=== PATIENT | female | born 1950 | race Caucasian/White ===

== ENCOUNTER 2018-04-29 15:38 | Observation (INO) | payer MEDICARE ==
[~2018-04-29] VITALS: Ht 160 cm; Wt 61.0 kg
[2018-04-29] MEDS ORDERED: MELATONIN5 M1 PO (16:27)
[2018-04-29 16:53] LABS: BASOPHILS ABSOLUTE AUTO 0.05 K/mm3 (0.00-0.23); BASOPHILS PERCENT AUTO 1 % (0-2); EOSINOPHILS ABSOLUTE AUTO 0.14 K/mm3 (0.00-0.68); EOSINOPHILS PERCENT AUTO 1 % (0-6); Hematocrit 42.5 % (33.0-51.0); IMMATURE GRAN ABSOLUTE AUTO 0.03 K/mm3 (0.00-0.10); IMMATURE GRAN PERCENT AUTO 0 % (0-1); LYMPHOCYTES ABSOLUTE AUTO 3.44 K/mm3 (0.84-5.20); LYMPHOCYTES PERCENT AUTO 34 % (21-46); MONOCYTES ABSOLUTE AUTO 0.83 K/mm3 (0.16-1.47); MONOCYTES PERCENT AUTO 8 % (4-13); Mean Corpuscular HGB 30.7 pg (26.0-34.0); Mean Corpuscular HGB Conc 32.9 g/dL (31.5-36.5); Mean Corpuscular Volume 93 fL (80-100); Mean Platelet Volume 10.3 fL (9.1-12.4); NEUTROPHILS ABSOLUTE AUTO 5.75 K/mm3 (1.96-9.15); NEUTROPHILS PERCENT AUTO 56 % (41-73); Platelet Count 300 K/mm3 (150-400); RDW Coefficient Variation 12.9 % (11.7-14.2); RDW Standard Deviation 44.6 fL (35.1-46.3); Red Blood Cell Count 4.56 M/mm3 (3.80-5.20); White Blood Cell Count 10.24 K/mm3 (4.00-11.30)
[2018-04-29 17:16] LABS: Troponin I <0.015 ng/mL (0.000-0.040)
[2018-04-29 17:19] LABS: Alanine Aminotransfer (ALT/SGP 22 U/L (12-78); Albumin, Blood 4.1 g/dL (3.4-5.0); Albumin/Globulin Ratio 1.3 (0.8-1.8); Alk Phos 95 U/L (50-136); Anion Gap 6 mmol/L (6-16); Aspartate Aminotrans (AST/SGOT 17 U/L (12-37); Bilirubin, Total 0.2 mg/dL (0.1-1.0); Blood Urea Nitrogen 16 mg/dL (8-24); Bun/Creatinine Ratio 21.8 (12.0-20.0); CO2, Blood 29 mmol/L (21-32); Calcium, Blood 9.1 mg/dL (8.5-10.1); Chloride, Blood 105 mmol/L (98-108); Creatinine, Blood 0.73 mg/dL (0.40-1.00); Globulin, Blood 3.1 g/dL (2.2-4.0); Glomerular Filtration Rate >60 (60-); Glucose, Blood 100 mg/dL (70-99); Potassium, Blood 3.7 mmol/L (3.5-5.5); Sodium, Blood 140 mmol/L (136-145); Total Protein, Blood 7.2 g/dL (6.4-8.2)
[2018-04-29] MEDS ORDERED: Aspirin EC81 MG PO (19:58)
[2018-04-29] MEDS ORDERED: NAPR220 PO (19:58)
--- NOTE | 2018-04-30 07:34 | NUR ---
SHIFT SUMMARY PT ONLY COMPLAINT DURING SHIFT WAS L CALF DISCOMFORT. PT DENIED ANY CX PAIN OR SOB. PT REPORTED SHE ONLY SLEPT A HOUR DUE TO DIFFICULTY FALLING ASLEEP. PT CURRENTLY AWAKE IN NO DISTRESS. CALL LIGHT IN REACH.
[2018-04-30] MEDS ORDERED: METO25ER PO (11:33)
[2018-04-30] MEDS ORDERED: OMEPRAZOLE MAGN20 MG PO (11:33)
--- NOTE | 2018-04-30 12:57 | NUR ---
DISCHARGE SUMMARY ALL INFORMATION TALKED WITH THE PATIENT. MEDICATIONS SENT TO THE PHARMACY AND INFORMATION SENT TO [facility] PER PATIENT REQUEST. PATIENT IV REMOVED AND WALKED DOWN BY MARLA.
== END 2018-04-30 12:59 | disposition home or self-care (01) ==
LOC: ER 15:38 → MEDS 15:39 → ER 21:20 → MEDS 21:20
PROVIDERS: Emergency Medicine; ADMIT Internal Medicine
DX: R07.9 Chest pain, unspecified (principal); I10 Essential (primary) hypertension; K21.9 Gastro-esophageal reflux disease without esophagitis; F41.9 Anxiety disorder, unspecified; M79.7 Fibromyalgia; G47.00 Insomnia, unspecified; Z79.899 Other long term (current) drug therapy; Z79.82 Long term (current) use of aspirin; Z91.038 Other insect allergy status
CPT/HCPCS: 71046; 80053; 83690; 83880; 84484; 85025; 85379; 93005; 93010; 93971; 99285-25; G0378